=== PATIENT | female | born 2000 | race Caucasian/White ===

== ENCOUNTER 2021-07-06 14:42 | Emergency (ER) | payer SELFPAY ==
[~2021-07-06] VITALS: Ht 157.5 cm; Wt 61.2 kg
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
[2021-07-06 15:44] VITALS: BP 126/71
--- NOTE | 2021-07-06 15:44 | NUR ---
Patient discharged to home in stable condition. Written and verbal after care instructions given. Patient verbalizes understanding of instruction.
== END 2021-07-06 15:45 ==
LOC: ER 14:46
DX: T50.901A Poisoning by unspecified drugs, medicaments and biological substances, accidental (unintentional), initial encounter (principal); R55 Syncope and collapse; Y92.481 Parking lot as the place of occurrence of the external cause